=== PATIENT | male | born 1960 | race Caucasian/White ===

== ENCOUNTER → 2023-06-26 | Outpatient (CLI) | payer MEDICARE ==
--- NOTE | 2023-06-26 12:01 | CA ---
Stress Echo Report Maurisio Grier Age: 62 Gender: M : 1960 Exam Date: 06/26/2023 09:19 Exam Location: [employer] Echo Ht (in): 71 Wt (lb): 180 Ordering Physician: Stalin Montgomery DO ([email or web address]) Referring Physician: STALIN MONTGOMERY,, Data Scientist: NICKO CAO Technologist Procedure CPT: Indication: Z01.810 ENCOUNTER FOR PREPROCEDURAL CARDIOVASCULAR ICD-9 Codes: Rhythm: Patient History: HTN, FAMILY HX OF HEART DISEASE, PRIOR SMOKER, PRIOR HEART CATH, Cardiac Medications: LISINOPRIL. ASA, CADIVALOL Medications in past 24 hours: Contrast: Stress Results Protocol: Armando Total dose(mL): Exercise Duration (min:sec): Max ST Depression (mm): Angina Score: Merritt Score: METS: 10.5 Resting HR: 99 Resting BP: 150 / 93 Peak HR: 155 Peak BP: 212 / 82 Max Predicted HR: 159 97 % Max Predicted HR Target HR: 135 Double Product: 29804 Stress Summary: BP Response: Reason for Termination: Reached target heart rate or work-load Cardiac Symptoms: NO SYMPTOMS ECG Analysis Resting ECG: Normal sinus rhythm, normal axis, heart rate 86 bpm Stress ECG: No significant ST-T wave changes are diagnostic for ischemia by ST segment analysis Arrhythmia: No Sustained arrhythmias. There were occasional PVCs noticed during peak exercise and early recovery. Echo Analysis Resting Echo: Normal global and segmental systolic function. No resting regional wall motion abnormality Peak Echo Analysis: Normal augmentation of global LV systolic function. No obvious Stress-induced regional wall motion normality MEASUREMENTS (Male/Female) Normal Values CONCLUSIONS Good exercise tolerance for age achieving 10.5 METS Hypertensive at baseline and hypertensive response to exercise Normal heart rate and clinical response to treadmill exercise Normal echocardiographic and ECG response to treadmill exercise Overall normal treadmill echo stress test Dr Wale Odom (Electronically Signed) Final Date: 26 June 2023 12:00
== END | disposition home or self-care (01) ==
LOC: RADNMMAIN 09:03
PROVIDERS: ATTEND Internal Medicine
DX: Z01.810 Encounter for preprocedural cardiovascular examination (principal); I10 Essential (primary) hypertension; R06.02 Shortness of breath; Z82.49 Family history of ischemic heart disease and other diseases of the circulatory system; Z87.891 Personal history of nicotine dependence
CPT/HCPCS: 93351

== ENCOUNTER → 2023-10-03 | Outpatient (CLI) | payer MEDICARE ==
--- NOTE | 2023-10-05 06:07 | MR ---
EXAMINATION TYPE: MR iac wo/w con DATE OF EXAM: 10/03/2023 3:55 PM CLINICAL INDICATION:Male, 63 years old with history of H90.A21 SNSRNRL HEAR LOSS, UNI, R EAR, WITH RS TRCD; PHH, Aries hearing loss COMPARISON: None TECHNIQUE: Multi planar, multi sequence imaging was performed through the brain. Specialized thin s equences were obtained through the internal auditory canals. Pre-and post gadolinium sequences were obtained. MR contrast: IV Contrast: 7.5 cc Gadavist FINDINGS: The bauer-white junctions, ventricular system, and cisterns appear unremarkable. Midline structures s how no abnormality. Diffusion-weighted imaging shows no evidence of restricted diffusion. The suscept ibility weighted images do not reveal any evidence for micro-hemorrhage. The bone marrow signal is within normal limits. Paranasal sinuses and mastoid air cells: Mild scattered paranasal sinus disease. Visualized orbits: Orbital contents are intact. After administration of gadolinium, no abnormal enhancement is seen. The internal auditory canal sequences demonstrate no significant irregularity. The 7th cranial nerve s, 8 cranial nerves, and cerebellar pontine angles appear unremarkable. After the administration melanie olinium, no abnormal enhancement is seen within the internal auditory canals. Vascular loop: None. IMPRESSION: 1. No evidence of intracranial mass nor acute/subacute CVA. 2. No evidence of internal auditory canal abnormality.
== END | disposition home or self-care (01) ==
LOC: RADMRIMAIN 14:39
PROVIDERS: ATTEND Otolaryngology
DX: H90.A21 Sensorineural hearing loss, unilateral, right ear, with restricted hearing on the contralateral side (principal)
CPT/HCPCS: 70553; A9585